=== PATIENT | male | born 1990 | race Caucasian/White ===

== ENCOUNTER 2017-02-24 17:26 | Inpatient (IN) | payer MEDICAID, OTHER ==
[~2017-02-24] VITALS: Ht 172.7 cm; Wt 66.5 kg
[~2017-02-24 17:26] MED LIST: ARIP2 PO; BACI1PAC6 TP; ESCI10TA PO
[2017-02-24] MEDS ORDERED: QUET200T PO (17:48)
[2017-02-24] MEDS ORDERED: PALI39DI IM (17:48)
[2017-02-24 18:22] LABS: BASOPHILS % (AUTO) 0.8 % (0.0-2.0); EOSINOPHILS % (AUTO) 0.4 % (1.0-6.0); HEMATOCRIT 37.5 % (41-53); HEMOGLOBIN 12.3 g/dL (13.5-17.5); LYMPHOCYTES # (AUTO) 1.8 K/uL (1.0-4.8); LYMPHOCYTES % (AUTO) 20.7 % (22.0-44.0); MEAN CORPUSCULAR HEMOGLOBIN 29.4 pg (26.0-34.0); MEAN CORPUSCULAR HGB CONC 32.7 G/dL (31.0-37.0); MEAN CORPUSCULAR VOLUME 90 fL (80-100); MONOCYTES # (AUTO) 0.4 K/uL (0.1-1.0); MONOCYTES % (AUTO) 4.8 % (2.0-9.0); NEUTROPHILS # (AUTO) 6.5 K/uL (1.8-7.7); NEUTROPHILS % (AUTO) 73.3 % (40.0-70.0); PLATELET COUNT (AUTO) 340 K/uL (150-450); RED BLOOD CELL COUNT(AUTO) 4.17 MIL/uL (4.50-5.90); RED CELL DISTRIBUTION WIDTH 14.1 % (11.5-14.5); WHITE BLOOD COUNT (AUTO) 8.8 K/uL (4.5-11.0)
[2017-02-24 18:40] LABS: ANION GAP 11 mmol/L (8-16); CALCIUM, TOTAL 9.5 mg/dL (8.8-10.5); CARBON DIOXIDE 27 mmol/L (22-29); CHLORIDE 102 mmol/L (98-107); CREATININE 0.75 mg/dL (0.60-1.30); GLOMERULAR FILTR. RATE CALC > 60 mL/min (>60); POTASSIUM 3.5 mmol/L (3.5-5.1); SODIUM SERUM 140 mmol/L (136-145); UREA NITROGEN, BLOOD 10 mg/dL (7-18)
[2017-02-24 18:45] LABS: ALANINE AMINOTRANSFERASE 33 U/L (12-78); ALBUMIN 4.1 g/dL (3.4-5.0); ASPARTATE AMINOTRANSFERASE 23 U/L (15-37); BILIRUBIN,TOTAL 0.5 mg/dL (0.1-1.0); TOTAL PROTEIN, SERUM 8.2 g/dL (6.4-8.2)
[2017-02-24] MEDS ORDERED: LORazepam 2 MG TABLET PO PRN (20:30)
[2017-02-24] MEDS ORDERED: QUEtiapine FUMARATE 100 MG TABLET PO ONE (20:30)
[2017-02-24] MEDS ORDERED: QUEtiapine FUMARATE 100 MG TABLET PO PRN (20:30)
[2017-02-24] MEDS ORDERED: ZOLPIDEM TARTRATE 10 MG TABLET PO PRN (20:30)
[2017-02-24] MEDS: BENZTROPINE MESYLATE 1 MG TABLET PO SCH (22:24)
[2017-02-24 22:25] VITALS: BP 130/86
[2017-02-24 23:37] LABS: APPEARANCE,URINE CLEAR (CLEAR); GLUCOSE, URINE (UA) NEGATIVE (NEGATIVE); KETONES,URINE NEGATIVE (NEGATIVE); LEUKOCYTE ESTERASE ,URINE NEGATIVE (NEGATIVE); OCCULT BLOOD,URINE NEGATIVE (NEGATIVE); PROTEIN,URINE NEGATIVE (NEGATIVE)
[2017-02-24 23:41] LABS: ADD UA MICROSCOPIC NO
[2017-02-24] MEDS: IBUPROFEN 600 MG TABLET PO SCH (23:54)
[2017-02-25] MEDS: IBUPROFEN 600 MG TABLET PO SCH (06:04)
[2017-02-25] MEDS ORDERED: BACITRACIN 28.4 GM OINTMENT TP PRN (07:30)
[2017-02-25] MEDS ORDERED: PETROLATUM,WHITE 71 GM JELLY TP PRN (07:30)
[2017-02-25] MEDS ORDERED: MAG HYDROX/AL HYDROX/SIMETH ES 30 ML SUSPENSION UDCUP PO PRN (07:30)
[2017-02-25] MEDS ORDERED: MAGNESIUM HYDROXIDE SUSPENSION 30 ML UDCUP PO PRN (07:30)
[2017-02-25] MEDS ORDERED: ONDANSETRON HCL 4 MG TABLET PO PRN (07:30)
[2017-02-25] MEDS ORDERED: ALBUTEROL SULFATE HFA 90 MCG/PUFF 8 GM INHALER IH PRN (07:30)
[2017-02-25] MEDS ORDERED: IBUPROFEN 600 MG TABLET PO PRN (07:30)
[2017-02-25] MEDS ORDERED: LOPERAMIDE HCL 2 MG CAPSULE PO PRN (07:30)
[2017-02-25] MEDS ORDERED: ACETAMINOPHEN 325 MG TABLET PO PRN (07:30)
[2017-02-25] MEDS ORDERED: CloNIDine HCL 0.1 MG TABLET PO PRN (07:30)
[2017-02-25] MEDS ORDERED: BENZOCAINE/MENTHOL LOZENGE [8 LOZENGES/PACKET] MM PRN (08:00)
[2017-02-25 08:17] VITALS: BP 124/97
[2017-02-25 09:10] LABS: CHOL/HDL RATIO 3.5 (4.2-7.3)
[2017-02-25] MEDS: BENZTROPINE MESYLATE 1 MG TABLET PO SCH ×2 (09:13→20:22)
[2017-02-25] MEDS: NICOTINE 21 MG/24 HOUR PATCH TD SCH (09:18)
[2017-02-25] MEDS: TraMADol HCL 50 MG TABLET PO PRN ×2 (14:59→21:05)
[2017-02-25 16:00] VITALS: BP 125/82
[2017-02-25] MEDS: QUEtiapine FUMARATE 200 MG TABLET PO SCH (20:22)
[2017-02-25 21:07] VITALS: BP 129/78
[2017-02-26 08:18] VITALS: BP 126/67
[2017-02-26] MEDS: BENZTROPINE MESYLATE 1 MG TABLET PO SCH ×2 (09:06→20:22)
[2017-02-26] MEDS: TraMADol HCL 50 MG TABLET PO PRN ×2 (09:06→16:14)
[2017-02-26] MEDS: NICOTINE 21 MG/24 HOUR PATCH TD SCH (09:08)
[2017-02-26 16:14] VITALS: BP 129/81
[2017-02-26] MEDS: QUEtiapine FUMARATE 200 MG TABLET PO SCH (20:22)
[2017-02-27] MEDS: BENZTROPINE MESYLATE 1 MG TABLET PO SCH ×2 (08:20→21:22)
[2017-02-27 08:22] VITALS: BP 136/85
[2017-02-27] MEDS: TraMADol HCL 50 MG TABLET PO PRN (08:22)
[2017-02-27] MEDS: NICOTINE 21 MG/24 HOUR PATCH TD SCH (08:25)
[2017-02-27 20:14] VITALS: BP 134/88
[2017-02-27] MEDS: QUEtiapine FUMARATE 200 MG TABLET PO SCH (21:22)
[2017-02-28] MEDS: FERROUS SULFATE 325 MG EC TABLET PO SCH ×2 (07:02→17:33)
[2017-02-28] MEDS: NICOTINE 21 MG/24 HOUR PATCH TD SCH (09:00)
[2017-02-28] MEDS: BENZTROPINE MESYLATE 1 MG TABLET PO SCH ×2 (09:05→21:39)
[2017-02-28 10:20] VITALS: BP 143/92
[2017-02-28] MEDS: TraMADol HCL 50 MG TABLET PO PRN (10:20)
[2017-02-28] MEDS ORDERED: PALIPERIDONE PALMITATE 234 MG/1.5 ML SYRINGE IM SCH (13:00)
[2017-02-28 16:45] VITALS: BP 134/65
[2017-02-28] MEDS: QUEtiapine FUMARATE 200 MG TABLET PO SCH (21:39)
[2017-03-01 06:06] VITALS: BP 128/72
[2017-03-01] MEDS: FERROUS SULFATE 325 MG EC TABLET PO SCH ×2 (06:36→16:10)
[2017-03-01 09:47] VITALS: BP 143/63
[2017-03-01] MEDS: BENZTROPINE MESYLATE 1 MG TABLET PO SCH ×2 (10:44→20:29)
[2017-03-01] MEDS: NICOTINE 21 MG/24 HOUR PATCH TD SCH (10:48)
[2017-03-01 14:13] VITALS: BP 126/79
[2017-03-01] MEDS: TraMADol HCL 50 MG TABLET PO PRN (14:13)
[2017-03-01 17:24] VITALS: BP 130/69
[2017-03-02] MEDS: FERROUS SULFATE 325 MG EC TABLET PO SCH ×2 (07:01→16:44)
[2017-03-02 09:29] VITALS: BP 113/70
[2017-03-02] MEDS: BENZTROPINE MESYLATE 1 MG TABLET PO SCH ×2 (10:31→21:26)
[2017-03-02] MEDS: NICOTINE 21 MG/24 HOUR PATCH TD SCH (10:31)
[2017-03-02] MEDS: TraMADol HCL 50 MG TABLET PO PRN ×2 (11:11→19:38)
[2017-03-02 17:29] VITALS: BP 100/53
[2017-03-02 19:37] VITALS: BP 126/69
[2017-03-02 20:37] VITALS: BP 119/79
[2017-03-03] MEDS: FERROUS SULFATE 325 MG EC TABLET PO SCH (06:35)
[2017-03-03 09:30] VITALS: BP 116/67
[2017-03-03] MEDS: TraMADol HCL 50 MG TABLET PO PRN (09:30)
[2017-03-03] MEDS: BENZTROPINE MESYLATE 1 MG TABLET PO SCH (09:31)
[2017-03-03] MEDS: NICOTINE 21 MG/24 HOUR PATCH TD SCH (09:32)
[2017-03-03] MEDS ORDERED: FERR-89 PO (12:08)
[2017-03-03] MEDS ORDERED: BENZ1TAB10 PO (12:08)
== END 2017-03-03 19:16 | disposition home or self-care (01) | DRG 750 ==
LOC: EEVIPCON 17:29 → EMS 17:29 → 3EI 20:30
PROC: GZHZZZZ Group Psychotherapy (ICD-10-PCS; principal; 2017-02-25)
DX: F25.1 Schizoaffective disorder, depressive type (principal); S02.81XA Fracture of other specified skull and facial bones, right side, initial encounter for closed fracture; D64.9 Anemia, unspecified; F17.210 Nicotine dependence, cigarettes, uncomplicated; S83.92XA Sprain of unspecified site of left knee, initial encounter; F12.90 Cannabis use, unspecified, uncomplicated; S01.81XA Laceration without foreign body of other part of head, initial encounter; F15.90 Other stimulant use, unspecified, uncomplicated; G47.00 Insomnia, unspecified; Z91.5 Personal history of self-harm; Z91.81 History of falling; Z71.6 Tobacco abuse counseling; Z71.51 Drug abuse counseling and surveillance of drug abuser; Y93.55 Activity, bike riding; Z59.0 Homelessness; V89.2XXA Person injured in unspecified motor-vehicle accident, traffic, initial encounter; Y92.89 Other specified places as the place of occurrence of the external cause; Y99.8 Other external cause status; Z98.890 Other specified postprocedural states
CPT/HCPCS: 99285; G0480

== ENCOUNTER 2017-04-04 13:45 | Emergency (ER) | payer MEDICAID, OTHER ==
[~2017-04-04] VITALS: Ht 172.7 cm; Wt 63.6 kg
[~2017-04-04 13:45] MED LIST changes: -ARIP2 PO; -BACI1PAC6 TP; +BENZ1TAB10 PO; -ESCI10TA PO; +FERR-89 PO; +PALI39DI IM
[2017-04-04 13:55] VITALS: BP 127/73
[2017-04-04] MEDS ORDERED: QUET25TA PO (14:08)
[2017-04-04] MEDS ORDERED: PALI234D IM (15:22)
[2017-04-04] MEDS ORDERED: DiphenhydrAMINE HCL 50 MG/ML VIAL ONE (15:30)
[2017-04-04] MEDS ORDERED: HALOPERIDOL LACTATE 5 MG/ML VIAL ONE (15:30)
[2017-04-04] MEDS ORDERED: LORazepam 2 MG/ML VIAL IM ONE (15:30)
[2017-04-04] MEDS ORDERED: HALOPERIDOL LACTATE 5 MG/ML VIAL IM ONE (15:30)
[2017-04-04] MEDS ORDERED: LORazepam 2 MG/ML VIAL ONE (15:30)
[2017-04-04] MEDS ORDERED: DiphenhydrAMINE HCL 50 MG/ML VIAL IM ONE (15:30)
== END 2017-04-04 15:20 | disposition home or self-care (01) ==
LOC: EMS 13:47
DX: F20.9 Schizophrenia, unspecified (principal); F12.90 Cannabis use, unspecified, uncomplicated; F15.90 Other stimulant use, unspecified, uncomplicated; F17.210 Nicotine dependence, cigarettes, uncomplicated
CPT/HCPCS: 99284; J1200; J1630; J2060